=== PATIENT | male | born 1965 | race Caucasian/White ===

== ENCOUNTER 2020-10-07 06:29 | Emergency (ER) | payer OTHER ==
[~2020-10-07] VITALS: Ht 170.2 cm; Wt 68.0 kg
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
[2020-10-07] MEDS ORDERED: IV NS 0.9% 1,000 ML BAG IV ONE (07:00)
[2020-10-07 07:49] LABS: BASOPHILS % (AUTO) 0.9 % (0.0-2.0); HEMATOCRIT 33 % (39-51); HEMOGLOBIN 10.4 g/dL (13.5-17.5); LYMPHOCYTES # (AUTO) 0.7 /CMM (0.8-4.8); LYMPHOCYTES % (AUTO) 25.2 % (20.0-44.0); MEAN CORPUSCULAR HGB CONC 32 g/dl (31.0-36.0); MEAN CORPUSCULAR VOLUME 88 fL (80-96); MONOCYTES # (AUTO) 0.2 /CMM (0.1-1.30); MONOCYTES % (AUTO) 7.3 % (2.0-12.0); NEUTROPHILS # (AUTO) 1.9 /CMM (1.8-8.9); NEUTROPHILS % (AUTO) 65.6 % (43.0-81.0); PLATELET COUNT (AUTO) 116 /CMM (150-450); RED BLOOD CELL COUNT(AUTO) 3.71 MIL/uL (4.5-6.0); WHITE BLOOD COUNT (AUTO) 2.9 K/uL (4.3-11.0)
--- NOTE | 2020-10-07 07:53 | NUR ---
iv line established on BREANNA G20 by dr. Corral. BLOOD DRAWN AND SENT TO LAB.
[2020-10-07 07:55] LABS: CALCIUM, SERUM 7.9 mg/dL (8.5-10.1); CARBON DIOXIDE 26 mmol/L (21-32); CHLORIDE 105 mmol/L (98-107); GLUCOSE 92 mg/dL (74-106); POTASSIUM 3.9 mmol/L (3.5-5.1); SODIUM SERUM 140 mmol/L (136-145); UREA NITROGEN, BLOOD 10 mg/dL (7-18)
[2020-10-07 08:01] LABS: ALANINE AMINOTRANSFERASE 20 U/L (12-78); ALBUMIN 2.6 g/dL (3.4-5.0); ALCOHOL, BLOOD 245 mg/dL (0-0); ALKALINE PHOSPHATASE 170 U/L (46-116); ASPARTATE AMINOTRANSFERASE 47 U/L (15-37); BILIRUBIN,DIRECT 0.4 mg/dL (0.0-0.2); BILIRUBIN,TOTAL 0.6 mg/dL (0.2-1.0); TOTAL PROTEIN, SERUM 7.1 g/dL (6.4-8.2)
[2020-10-07 08:04] LABS: ACETAMINOPHEN < 0 ug/ml (10-30)
--- NOTE | 2020-10-07 10:37 | NUR ---
Patient is resting comfortably in bed with eyes closed. Easily aroused. VSS
--- NOTE | 2020-10-07 13:07 | NUR ---
Patient is resting comfortably in bed with eyes closed. Easily aroused. VSS
[2020-10-07] MEDS ORDERED: OLANZAPINE 5 MG TABLET PO ONE (13:30)
--- NOTE | 2020-10-07 15:08 | NUR ---
PATIENT AWAKE, WEAK AND UNSTEADY WITH AMBULATION. VSS. NEEDS ATTENDED.
[2020-10-07] MEDS ORDERED: OLANZAPINE 5 MG TABLET ONE (15:25)
--- NOTE | 2020-10-07 17:37 | NUR ---
Patient is resting comfortably in bed with eyes closed. Easily aroused. VSS
--- NOTE | 2020-10-07 20:00 | NUR ---
PT AWAKE. AMBULATORY WITH STEADY GAIT. FOOD AND JUICE PROVIDED TO PATIENT. PER DR. MA, MEDICALLY CLEARED FOR DISCHARGE AT THIS TIME
--- NOTE | 2020-10-07 20:00 | NUR ---
IV removed. Catheter intact and site benign. Pressure and 4x4 applied to site. No bleeding noted.
--- NOTE | 2020-10-07 20:10 | NUR ---
Patient given written and verbal discharge instructions. Patient verbalizes understanding of instructions. Patient is ambulatory with steady gait. Refuses offer of retirement placement. Patient given list of available shelters in surrounding area.
[2020-10-07 21:02] VITALS: BP 122/79
[2020-10-09] MEDS ORDERED: FOLI0.4T6 PO (10:21)
[2020-10-09] MEDS ORDERED: THIA100T88 PO (10:21)
== END 2020-10-07 20:10 | disposition home or self-care (01) ==
LOC: EDSEX 06:29 → ER 06:29 → EDBD 06:29 → ER 20:10
DX: F10.129 Alcohol abuse with intoxication, unspecified (principal); F29 Unspecified psychosis not due to a substance or known physiological condition; I95.9 Hypotension, unspecified; Y90.8 Blood alcohol level of 240 mg/100 ml or more
CPT/HCPCS: 36415; 70450; 80048; 80076; 80299; 80320; 85025; 96360; 99285; J7030; G0480

== ENCOUNTER 2020-10-08 08:56 | Inpatient (IN) | payer OTHER ==
[~2020-10-08] VITALS: Ht 170.2 cm; Wt 55.3 kg
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
--- NOTE | 2020-10-08 09:26 | NUR ---
PT SEEN AND EXAMINED BY .
--- NOTE | 2020-10-08 09:45 | NUR ---
NEWSPAPER MANAGING EDITOR AT BEDSIDE FOR XRAY.
--- NOTE | 2020-10-08 10:18 | NUR ---
received a call from beulah sejal, [facility] nurse will be here in an hour.
--- NOTE | 2020-10-08 10:29 | NUR ---
luisana harding on-call,dr nicholson called,spoke with dr tipton
[2020-10-08 10:43] LABS: BASOPHILS % (AUTO) 0.9 % (0.0-2.0); HEMATOCRIT 31 % (39-51); HEMOGLOBIN 10.1 g/dL (13.5-17.5); LYMPHOCYTES # (AUTO) 0.4 /CMM (0.8-4.8); LYMPHOCYTES % (AUTO) 17.7 % (20.0-44.0); MEAN CORPUSCULAR HGB CONC 32 g/dl (31.0-36.0); MEAN CORPUSCULAR VOLUME 88 fL (80-96); MONOCYTES # (AUTO) 0.2 /CMM (0.1-1.30); MONOCYTES % (AUTO) 7.8 % (2.0-12.0); NEUTROPHILS # (AUTO) 1.8 /CMM (1.8-8.9); NEUTROPHILS % (AUTO) 72.6 % (43.0-81.0); PLATELET COUNT (AUTO) 141 /CMM (150-450); RED BLOOD CELL COUNT(AUTO) 3.59 MIL/uL (4.5-6.0); WHITE BLOOD COUNT (AUTO) 2.5 K/uL (4.3-11.0)
[2020-10-08 10:56] LABS: ALBUMIN 2.7 g/dL (3.4-5.0); BILIRUBIN,DIRECT 0.4 mg/dL (0.0-0.2); BILIRUBIN,TOTAL 0.7 mg/dL (0.2-1.0); CALCIUM, SERUM 8.1 mg/dL (8.5-10.1); CREATININE 0.8 mg/dL (0.6-1.3); POTASSIUM 3.6 mmol/L (3.5-5.1); TOTAL PROTEIN, SERUM 7.2 g/dL (6.4-8.2)
[2020-10-08] MEDS ORDERED: MORPHINE SULFATE INJ 2 MG/ML DISP.SYRIN IV ONE (11:30)
[2020-10-08] MEDS ORDERED: MORPHINE SULFATE INJ 4 MG/ML DISP.SYRIN ONE (11:38)
--- NOTE | 2020-10-08 11:52 | NUR ---
[facility] CALLED COMMUNITY SERVICE REPRESENTATIVE PAGED.
--- NOTE | 2020-10-08 12:05 | NUR ---
LAB CALLED PT COVID RESULT NEGATIVE (-).
[2020-10-08] MEDS ORDERED: ZOLPIDEM TARTRATE 5 MG TABLET PO PRN (12:30)
[2020-10-08] MEDS ORDERED: ACETAMINOPHEN 325 MG TABLET PO PRN (12:30)
[2020-10-08] MEDS ORDERED: ONDANSETRON HCL/PF 4 MG/2 ML VIAL IVP PRN (12:30)
[2020-10-08] MEDS ORDERED: MAG HYDROX/AL HYDROX/SIMETH 30 ML UDC PO PRN (12:30)
[2020-10-08] MEDS ORDERED: Z GUARD REMEDY 2 OZ OINT TP PRN (12:30)
[2020-10-08] MEDS ORDERED: IV NS 0.9% 1,000 ML IV SCH (12:30)
[2020-10-08] MEDS ORDERED: MAGNESIUM HYDROXIDE 30 ML UDC PO PRN (12:30)
[2020-10-08] MEDS ORDERED: HYDROCODONE/APAP 5/325MG TABLET PO PRN (12:30)
--- NOTE | 2020-10-08 13:54 | NUR ---
REPORT GIVEN TO RN JESSICA FOR [facility].
--- NOTE | 2020-10-08 15:00 | NUR ---
Received patient from ED in [facility]. Patient admitted to med surg. Assessments done and noted. Patient noted with right upper arm midline. Alert and oriented. Will monitor. Call light with in reach.
[2020-10-08] MEDS: MORPHINE SULFATE INJ 2 MG/ML DISP.SYRIN IV PRN (18:48)
--- NOTE | 2020-10-08 19:07 | NUR ---
MS CLOSING NOTES Patient is alert and oriented. Patient is breathing even and unlabored. no s/s of respiratory distress. patient resting well, in stable condition. On iv fluids N/S 0.9 % at 100ml/hour to right upper arm midline. Endorsed to next shift for follow up. Bed is in lowest and locked position. Call light with in reach.
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
[2020-10-08 20:00] VITALS: BP_SYST 13; BP_SYST 132; BP_DIAS 70; BP_DIAS 89
[2020-10-08] MEDS: IV NS 0.9% 1,000 ML IV PRN (20:39)
[2020-10-08] MEDS: LORAZEPAM 1 MG TABLET PO PRN (21:37)
[2020-10-09] MEDS: IV NS 0.9% 1,000 ML IV PRN ×2 (03:16→14:14)
[2020-10-09 04:00] VITALS: BP 130/75
[2020-10-09 07:08] LABS: EOSINOPHILS % (AUTO) 1.2 % (0.0-6.0); HEMATOCRIT 31 % (39-51); HEMOGLOBIN 10.1 g/dL (13.5-17.5); LYMPHOCYTES # (AUTO) 0.4 /CMM (0.8-4.8); LYMPHOCYTES % (AUTO) 18.3 % (20.0-44.0); MEAN CORPUSCULAR HGB CONC 33 g/dl (31.0-36.0); MEAN CORPUSCULAR VOLUME 87 fL (80-96); MONOCYTES # (AUTO) 0.2 /CMM (0.1-1.30); MONOCYTES % (AUTO) 10.8 % (2.0-12.0); NEUTROPHILS # (AUTO) 1.5 /CMM (1.8-8.9); NEUTROPHILS % (AUTO) 67.7 % (43.0-81.0); PLATELET COUNT (AUTO) 125 /CMM (150-450); RED BLOOD CELL COUNT(AUTO) 3.59 MIL/uL (4.5-6.0); WHITE BLOOD COUNT (AUTO) 2.3 K/uL (4.3-11.0)
--- NOTE | 2020-10-09 07:30 | NUR ---
MS RN OPENING NOTES Patient is alert and oriented. Patient is breathing even and unlabored. no s/s of respiratory distress. On IV fluids N/S 0.9 % at 100ml/hour to right upper arm midline. Bed is in lowest and locked position. Call light with in reach.
[2020-10-09 07:36] LABS: CALCIUM, SERUM 7.9 mg/dL (8.5-10.1); CREATININE 0.8 mg/dL (0.6-1.3); PHOSPHORUS 3.1 mg/dL (2.5-4.9); POTASSIUM 3.7 mmol/L (3.5-5.1)
[2020-10-09 07:38] LABS: MAGNESIUM 1.2 mg/dL (1.8-2.4)
[2020-10-09 08:00] VITALS: BP_SYST 115; BP_SYST 141; BP_DIAS 100; BP_DIAS 79
[2020-10-09] MEDS: MORPHINE SULFATE INJ 2 MG/ML DISP.SYRIN IV PRN ×4 (08:17→23:51)
[2020-10-09] MEDS ORDERED: FOLI0.4T6 PO (10:21)
[2020-10-09] MEDS ORDERED: THIA100T88 PO (10:21)
[2020-10-09] MEDS: Magnesium 1GM/D5W 100ML PREMIX 100 ML IV SCH ×4 (10:24→14:02)
[2020-10-09 16:00] VITALS: BP 122/82
[2020-10-09] MEDS: LORAZEPAM 1 MG TABLET PO PRN (18:25)
--- NOTE | 2020-10-09 18:52 | NUR ---
MS RN CLOSING NOTES Patient is alert and oriented. Patient is breathing even and unlabored. no s/s of respiratory distress. On IV fluids N/S 0.9 % at 100ml/hour to right upper arm midline. Bed is in lowest and locked position. Call light with in reach.Will endorse to next shift for [facility].
[2020-10-09 20:00] VITALS: BP 112/68
--- NOTE | 2020-10-09 20:00 | NUR ---
RN NOTE RECEIVED PT IN BED A/A/O X2, RA SATING 95%. UNLABORED BRAETHING, DENIES PAIN.
[2020-10-10] MEDS: IV NS 0.9% 1,000 ML IV PRN (01:09)
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
[2020-10-10 04:00] VITALS: BP 118/52
[2020-10-10] MEDS: MORPHINE SULFATE INJ 2 MG/ML DISP.SYRIN IV PRN (04:05)
--- NOTE | 2020-10-10 07:15 | NUR ---
RN NOTE REPORT GIVEN TO ONCOMING SHIDFT FOR [facility].
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
--- NOTE | 2020-10-10 09:01 | NUR ---
SS Consult received for [facility] placement. However, pt. has already departed.
== END 2020-10-10 07:20 | disposition left against medical advice (07) | DRG 342 ==
LOC: ER 08:57 → TELE1 13:12 → MEDSG1 16:49
PROVIDERS: ADMIT Internal Medicine; ATTEND Internal Medicine
PROC: 05HB33Z Insertion of Infusion Device into Right Basilic Vein, Percutaneous Approach (ICD-10-PCS; principal; 2020-10-08)
DX: S42.302A Unspecified fracture of shaft of humerus, left arm, initial encounter for closed fracture (principal); N17.0 Acute kidney failure with tubular necrosis; E83.42 Hypomagnesemia; X58.XXXA Exposure to other specified factors, initial encounter; Y92.89 Other specified places as the place of occurrence of the external cause; Z20.822 Contact with and (suspected) exposure to COVID-19; Y90.9 Presence of alcohol in blood, level not specified; F10.10 Alcohol abuse, uncomplicated
CPT/HCPCS: 36415; 73060-TC; 80048-TC; 80076-TC; 83735-TC; 84100-TC; 85025-TC; 85730-TC; 86850-TC; 87081-TC; C9803; G0378; J2270; J3475; J7030